=== PATIENT | female | born 1980 | race Two or more races ===

== ENCOUNTER 2022-10-04 09:15 | Inpatient (IN) | payer OTHER | END 2022-10-08 09:50 | disposition home or self-care (01) | DRG 743 | LOC: EDSTATUS 09:15 → ADM 09:15 → O/R 10-06 06:25 → OB/GYN 10-06 06:25 | PROVIDERS: ADMIT Obstetrics & Gynecology; ATTEND Obstetrics & Gynecology | PROC: 0UT70ZZ Resection of Bilateral Fallopian Tubes, Open Approach (ICD-10-PCS; 2022-10-06) | PROC: 0UT20ZZ Resection of Bilateral Ovaries, Open Approach (ICD-10-PCS; 2022-10-06) | PROC: 0UN70ZZ Release Bilateral Fallopian Tubes, Open Approach (ICD-10-PCS; 2022-10-06) | PROC: 0UN20ZZ Release Bilateral Ovaries, Open Approach (ICD-10-PCS; 2022-10-06) | PROC: 0UT90ZL Resection of Uterus, Supracervical, Open Approach (ICD-10-PCS; principal; 2022-10-06 14:30) | DX: D25.1 Intramural leiomyoma of uterus (principal); Z20.822 Contact with and (suspected) exposure to COVID-19; N80.00 Endometriosis of the uterus, unspecified; N83.01 Follicular cyst of right ovary; N83.02 Follicular cyst of left ovary; N83.11 Corpus luteum cyst of right ovary; N83.12 Corpus luteum cyst of left ovary; N73.6 Female pelvic peritoneal adhesions (postinfective) ==